=== PATIENT | female | born 2000 | race Caucasian/White ===

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

== ENCOUNTER 2018-11-03 09:53 | Emergency (ER) | payer MEDICARE, OTHER ==
[~2018-11-03] VITALS: Ht 167.6 cm; Wt 99.8 kg
[~2018-11-03 09:53] MED LIST: BIRTH CONTROL; DEXT30CA6 PO; OXYB5TAB7 PO
[2018-11-03] MEDS ORDERED: ONDANSETRON PF 4 MG/2 ML VIAL. IV ONE (10:15)
[2018-11-03] MEDS ORDERED: IV NORMAL SALINE 1000ML BAG 1,000 ML IV ONE (10:15)
[2018-11-03] MEDS ORDERED: fentaNYL PF VIAL 100 MCG/2 ML VIAL IV ONE ×2 (10:30→11:45)
[2018-11-03 10:36] LABS: BILIRUBIN,URINE NEGATIVE (NEG); CLARITY,URINE CLEAR; COLOR,URINE YELLOW; NITRITE,URINE NEGATIVE (NEG); PROTEIN,URINE NEGATIVE (NEG-TRACE); UROBILINOGEN,URINE 0.2 mg/dL (0.2 mg/dL)
[2018-11-03 10:39] LABS: BASO # 0.1 x10^3/uL (0.0-0.2); BASO % 1 % (0-3); EOS # 0.4 x10^3/uL (0.0-0.7); EOS % 3 % (0-3); HEMATOCRIT 41.6 % (36.0-47.0); HEMOGLOBIN 13.7 g/dL (12.0-15.5); LYMPH # 3.4 x10^3/uL (1.0-4.8); LYMPH % 31 % (24-48); MEAN CORPUSCULAR HEMOGLOBIN 30 pg (25-35); MEAN CORPUSCULAR HGB CONC 33 g/dL (31-37); MEAN CORPUSCULAR VOLUME 90 fL (79-100); MONO # 0.5 x10^3/uL (0.0-1.1); MONO % 5 % (0-9); NEUT # 6.6 x10^3uL (1.8-7.7); NEUT % 60 % (31-73); PLATELET COUNT 362 x10^3/uL (140-400); RED BLOOD COUNT 4.65 x10^6/uL (3.50-5.40); RED CELL DISTRIBUTION WIDTH 12.6 % (11.5-14.5); WHITE BLOOD COUNT 11.1 x10^3/uL (4.0-11.0)
[2018-11-03 10:45] LABS: RBC,URINE 0 /HPF (0-2); SQUAMOUS EPITHELIAL CELL,UR FEW /LPF
[2018-11-03 10:46] LABS: BACTERIA,URINE FEW /HPF (0-FEW)
[2018-11-03 10:49] LABS: CALCIUM 8.7 mg/dL (8.5-10.1); CREATININE 0.7 mg/dL (0.6-1.0); GFR 107.8; POTASSIUM 4.3 mmol/L (3.5-5.1)
--- NOTE | 2018-11-03 11:39 | RAD ---
Indication:LOWER ABD PAIN, HX OF OVARIAN TORSION TECHNIQUE: Grayscale, color Doppler and spectral waveform images of the pelvis obtained. COMPARISON:None FINDINGS: The uterus is anteverted and measures 7.3 x 2.4 x 4.5 cm (nodule, AP, transverse). Endometrial stripe measures 1 mm in thickness and is within normal limits. Few nabothian cysts are seen in the cervix. The right ovary measures 4.1 x 2.3 x 3.8 cm with multiple follicles and demonstrates evidence of blood flow. The left ovary measures 4.3 x 2.1 x 3.0 cm with multiple follicles and demonstrates evidence of blood flow. No free pelvic fluid. IMPRESSION: Bilateral ovaries demonstrate evidence of blood flow with multiple follicles. Electronically signed by: Siva Ames DO (11/03/2018 11:36 AM) [id number]
[2018-11-03] MEDS ORDERED: IOHEXOL 300 MG/ML 100ML VIAL. IV ONE (12:15)
[2018-11-03] MEDS ORDERED: CONTRAST GIVEN. MC PRN (12:15)
--- NOTE | 2018-11-03 12:45 | RAD ---
PQRS Compliance statement: One or more of the following individualized dose reduction techniques were utilized for this examination: 1. Automated exposure control. 2. Adjustment of the mA and/or kV according to patient size. 3. Use of iterative reconstruction technique. Indication:LLQ PAIN, [id number] 75ML, NO PRIORS TECHNIQUE: CT abdomen and pelvis with IV contrast with multiplanar reformats. COMPARISON: None FINDINGS: Heart is normal in size. No pericardial or pleural effusion. Clear lung bases. Liver, spleen, gallbladder, pancreas, adrenals and kidneys are within normal limits. No retroperitoneal or pelvic adenopathy. No free pelvic fluid or ascites. No bowel obstruction. Normal appendix. Uterus is present. Urinary bladder within normal limits. No pneumoperitoneum. No suspicious bony lesion. IMPRESSION: No acute findings. Electronically signed by: Siva Ames DO (11/03/2018 12:42 PM) [id number]
[2018-11-03 12:55] VITALS: BP 134/88
--- NOTE | 2018-11-03 13:00 | PHYS DOC ---
Past Medical History Past Medical History: Asthma, Other Additional Past Medical Histor: ovarian cysts, interstitial cystitis Past Surgical History: Other Additional Past Surgical Histo: ovarian torsion, foot surgery Alcohol Use: None Drug Use: None Adult General Chief Complaint Chief Complaint: ABDOMINAL PAIN HPI HPI Patient is a 17 year old female who presents to the ER with complaints of sudden onset of severe lower abdominal pain. She denies any vomiting, diarrhea, dysuria, hematuria, incontinence, back pain, fever, irregular vaginal discharge , or vaginal bleeding. Pt states she has a history of ovarian torsion and reports concern that it is happening again. She states the pain first started in her left lower abdomen but currently reports TTP in the RLQ. Pt describes the pain as a stabbing sensation and currently rates the pain a 6/10, she denies any alleviating or exacerbating factors. At this time she reports nausea. Review of Systems Review of Systems Constitutional: Denies fever or chills [] Eyes: Denies changes HENT: Denies nasal congestion or sore throat [] Respiratory: Denies cough or shortness of breath [] Cardiovascular: No additional information not addressed in HPI [] GI: See HPI : Denies dysuria or hematuria [] Musculoskeletal: Denies back pain Integument: Denies rash or skin lesions [] Neurologic: Denies headache, focal weakness or sensory changes [] Current Medications Current Medications Current Medications Medications (Trade) Dose Ordered Sig/Sami Start Time Stop Time Status Last Admin Dose Admin Fentanyl Citrate (Fentanyl 2ml Vial) 50 mcg 1X ONCE 11/03/18 11:45 11/03/18 11:46 DC 11/03/18 11:40 50 MCG Info (CONTRAST GIVEN -- Rx MONITORING) 1 each PRN DAILY PRN 11/03/18 12:15 11/03/18 13:24 DC Iohexol (Omnipaque 300 Mg/ml) 75 ml 1X ONCE 11/03/18 12:15 11/03/18 12:16 DC 11/03/18 12:23 75 ML Ondansetron HCl (Zofran) 4 mg 1X ONCE 11/03/18 10:15 11/03/18 10:17 DC 11/03/18 10:36 4 MG Sodium Chloride 1,000 ml @ 1,000 mls/hr 1X ONCE 11/03/18 10:15 11/03/18 11:14 DC 11/03/18 10:36 1,000 MLS/HR Allergies Allergies Allergies Coded Allergies Type Severity Reaction Last Updated Verified iodine Allergy Intermediate TOPICAL PRODUCTS ONLY 11/03/18 Yes Physical Exam Physical Exam Constitutional: Well developed, well nourished, moderate distress, non-toxic appearance. [] HENT: Normocephalic, atraumatic, bilateral external ears normal, oropharynx moist, nose normal. [] Eyes: conjunctiva normal, no discharge. [] Neck: Normal range of motion, no stridor. [] Cardiovascular:Heart rate regular rhythm, no murmur [] Lungs & Thorax: Bilateral breath sounds clear to auscultation [] Abdomen: Bowel sounds normal, soft, no masses, no pulsatile masses; RLQ TTP, no guarding or rebound tenderness, positive McBurney's point tenderness, negative Rovsing's sign[] Skin: Warm, dry, no erythema, no rash. [] Back: no CVA tenderness. [] Extremities: No cyanosis, ROM intact, no edema. [] Neurologic: Alert and oriented X 3, normal motor function, normal sensory function, no focal deficits noted. [] Psychologic: Affect normal, judgement normal, mood normal. [] Current Patient Data Vital Signs Vital Signs Date Time Temp Pulse Resp B/P (MAP) Pulse Ox O2 Delivery O2 Flow Rate FiO2 11/03/18 12:55 78 15 134/88 (103) 98 Room Air 11/03/18 10:05 98.4 98.4 Lab Values Laboratory Tests Test 11/03/18 10:00 11/03/18 10:12 11/03/18 10:29 Urine Collection Type Unknown Urine Color Yellow Urine Clarity Clear Urine pH 6.0 Urine Specific [place] 1.025 Urine Protein Negative mg/dL (NEG-TRACE) Urine Glucose (UA) Negative mg/dL (NEG) Urine Ketones (Stick) Negative mg/dL (NEG) Urine Blood Negative (NEG) Urine Nitrite Negative (NEG) Urine Bilirubin Negative (NEG) Urine Urobilinogen Dipstick 0.2 mg/dL (0.2 mg/dL) Urine Leukocyte Esterase Small (NEG) Urine RBC 0 /HPF (0-2) Urine WBC 1-4 /HPF (0-4) Urine Squamous Epithelial Cells Few /LPF Urine Bacteria Few /HPF (0-FEW) POC Urine HCG, Qualitative Hcg negative (Negative) White Blood Count 11.1 x10^3/uL (4.0-11.0) H Red Blood Count 4.65 x10^6/uL (3.50-5.40) Hemoglobin 13.7 g/dL (12.0-15.5) Hematocrit 41.6 % (36.0-47.0) Mean Corpuscular Volume 90 fL (79-100) Mean Corpuscular Hemoglobin 30 pg (25-35) Mean Corpuscular Hemoglobin Concent 33 g/dL (31-37) Red Cell Distribution Width 12.6 % (11.5-14.5) Platelet Count 362 x10^3/uL (140-400) Neutrophils (%) (Auto) 60 % (31-73) Lymphocytes (%) (Auto) 31 % (24-48) Monocytes (%) (Auto) 5 % (0-9) Eosinophils (%) (Auto) 3 % (0-3) Basophils (%) (Auto) 1 % (0-3) Neutrophils # (Auto) 6.6 x10^3uL (1.8-7.7) Lymphocytes # (Auto) 3.4 x10^3/uL (1.0-4.8) Monocytes # (Auto) 0.5 x10^3/uL (0.0-1.1) Eosinophils # (Auto) 0.4 x10^3/uL (0.0-0.7) Basophils # (Auto) 0.1 x10^3/uL (0.0-0.2) Sodium Level 141 mmol/L (136-145) Potassium Level 4.3 mmol/L (3.5-5.1) Chloride Level 104 mmol/L (98-107) Carbon Dioxide Level 27 mmol/L (21-32) Anion Gap 10 (6-14) Blood Urea Nitrogen 7 mg/dL (7-20) Creatinine 0.7 mg/dL (0.6-1.0) Estimated GFR (Cockcroft-Gault) 107.8 Glucose Level 84 mg/dL (70-99) Calcium Level 8.7 mg/dL (8.5-10.1) Laboratory Tests 11/03/18 10:29 Laboratory Tests 11/03/18 10:29 Microbiology 11/03/18 Urine Culture - Final, Complete 11/03/18 Urine Culture Result 1 (OLYA) - Final, Complete EKG EKG [] Radiology/Procedures Radiology/Procedures PROCEDURE: CT ABD PELV W/ IV CONTRST ONLY PQRS Compliance statement: One or more of the following individualized dose reduction techniques were utilized for this examination: 1. Automated exposure control. 2. Adjustment of the mA and/or kV according to patient size. 3. Use of iterative reconstruction technique. Indication:LLQ PAIN, [id number] 75ML, NO PRIORS TECHNIQUE: CT abdomen and pelvis with IV contrast with multiplanar reformats. COMPARISON: None FINDINGS: Heart is normal in size. No pericardial or pleural effusion. Clear lung bases. Liver, spleen, gallbladder, pancreas, adrenals and kidneys are within normal limits. No retroperitoneal or pelvic adenopathy. No free pelvic fluid or ascites. No bowel obstruction. Normal appendix. Uterus is present. Urinary bladder within normal limits. No pneumoperitoneum. No suspicious bony lesion. IMPRESSION: No acute findings. PROCEDURE: PELVIS W/TV Indication:LOWER ABD PAIN, HX OF OVARIAN TORSION TECHNIQUE: Grayscale, color Doppler and spectral waveform images of the pelvis obtained. COMPARISON:None FINDINGS: The uterus is anteverted and measures 7.3 x 2.4 x 4.5 cm (nodule, AP, transverse). Endometrial stripe measures 1 mm in thickness and is within normal limits. Few nabothian cysts are seen in the cervix. The right ovary measures 4.1 x 2.3 x 3.8 cm with multiple follicles and demonstrates evidence of blood flow. The left ovary measures 4.3 x 2.1 x 3.0 cm with multiple follicles and demonstrates evidence of blood flow. No free pelvic fluid. IMPRESSION: Bilateral ovaries demonstrate evidence of blood flow with multiple follicles. [] Course & Med Decision Making Course & Med Decision Making Pertinent Labs and Imaging studies reviewed. (See chart for details) dx lower abdominal pain CT and US were negative for acute appendicitis, ruptured ovarian cyst, or ovarian torsion. WBC 11.1, BMP and UA unremarkable. Pt encouraged to eat bland foods, tylenol or ibuprofen as needed for pain. Follow up with PCP if symptoms persist, return to ER if symptoms worsen. Patient verbalized an understanding of home care, medications, follow-up, and return to ED instructions and was in agreement with the plan of care. [] Dragon Disclaimer Dragon Disclaimer This electronic medical record was generated, in whole or in part, using a voice recognition dictation system. Departure Departure Impression: Primary Impression: Lower abdominal pain Disposition: HOME, SELF-CARE Condition: STABLE Referrals: EBENEZER LOWRY MD (PCP) Patient Instructions: Abdominal Pain (Nonspecific) Additional Instructions: Your CT and US were negative for acute appendicitis, ruptured ovarian cyst, or ovarian torsion. Recommend tylenol or ibuprofen as needed for pain, eat bland foods. Follow up with PCP if symptoms persist, return to the ER if symptoms worsen. LAURIE RISO ELECTRICAL ENGINEER MEP Nov 03, 2018 13:00
== END 2018-11-03 13:24 | disposition home or self-care (01) ==
LOC: ER 09:53
DX: R10.32 Left lower quadrant pain (principal); J45.909 Unspecified asthma, uncomplicated; Z88.8 Allergy status to other drugs, medicaments and biological substances
CPT/HCPCS: 36415; 74177; 76830; 76856; 80048; 81001; 81025; 85025; 87086; 96361; 96374; 96375; 96376; 99284; J2405; J3010; J7030; Q9967

== ENCOUNTER → 2019-03-21 | Outpatient (CLI) | payer OTHER ==
--- NOTE | 2019-03-21 16:56 | KCIC ---
INDICATION: Shortness of air and wheezing COMPARISON: None. FINDINGS: 2 view of chest obtained. No definite focal airspace consolidation or pulmonary edema. Cardiac silhouette is unremarkable. No gross osseous destructive lesion. IMPRESSION: 1. No definite focal airspace consolidation. Electronically signed by: Richard Martinez MD (03/21/2019 4:53 PM) [facility]
== END | disposition home or self-care (01) ==
LOC: KCIC 15:43
PROVIDERS: ATTEND Family Medicine
DX: J20.9 Acute bronchitis, unspecified (principal)
CPT/HCPCS: 71046

== ENCOUNTER 2019-06-23 16:15 | Emergency (ER) | payer OTHER ==
[~2019-06-23] VITALS: Ht 167.6 cm; Wt 102.5 kg
[~2019-06-23 16:15] MED LIST changes: +OXYB5TAB10 PO; -OXYB5TAB7 PO
[2019-06-23 16:30] VITALS: BP 148/86
[2019-06-23] MEDS ORDERED: IV NORMAL SALINE 1000ML BAG 1,000 ML IV ONE (17:00)
[2019-06-23] MEDS ORDERED: ONDANSETRON PF 4 MG/2 ML VIAL. IV ONE (17:00)
[2019-06-23] MEDS ORDERED: FAMOTIDINE 20 MG/2 ML VIAL IVP ONE (17:00)
[2019-06-23] MEDS ORDERED: MORPHINE SULFATE 10 MG/ML VIAL. IV ONE (17:00)
[2019-06-23 17:01] LABS: BILIRUBIN,URINE NEGATIVE (NEG); CLARITY,URINE CLEAR; COLOR,URINE YELLOW; NITRITE,URINE NEGATIVE (NEG); PH,URINE 5.5; PROTEIN,URINE NEGATIVE (NEG-TRACE); UROBILINOGEN,URINE 0.2 mg/dL (0.2 mg/dL)
[2019-06-23 17:05] LABS: BASO % 0 % (0-3); EOS # 0.3 x10^3/uL (0.0-0.7); EOS % 4 % (0-3); HEMATOCRIT 41.6 % (36.0-47.0); HEMOGLOBIN 14.1 g/dL (12.0-15.5); LYMPH % 26 % (24-48); MEAN CORPUSCULAR HEMOGLOBIN 30 pg (25-35); MEAN CORPUSCULAR HGB CONC 34 g/dL (31-37); MEAN CORPUSCULAR VOLUME 88 fL (79-100); MONO # 0.4 x10^3/uL (0.0-1.1); MONO % 5 % (0-9); NEUT # 5.2 x10^3/uL (1.8-7.7); NEUT % 66 % (31-73); PLATELET COUNT 410 x10^3/uL (140-400); RED BLOOD COUNT 4.71 x10^6/uL (3.50-5.40); RED CELL DISTRIBUTION WIDTH 12.6 % (11.5-14.5); WHITE BLOOD COUNT 7.9 x10^3/uL (4.0-11.0)
[2019-06-23 17:08] LABS: BACTERIA,URINE FEW /HPF (0-FEW); BARBITURATES NEG (NEG); BENZODIAZEPINES NEG (NEG); CANNABINOIDS NEG (NEG); COCAINE NEG (NEG); METHADONE NEG (NEG); OPIATES NEG (NEG); PHENCYCLIDINE NEG (NEG); SQUAMOUS EPITHELIAL CELL,UR FEW /LPF
[2019-06-23 17:09] LABS: AMPHETAMINE/METHAMPHETAMINE POS (NEG); RBC,URINE 0 /HPF (0-2); WBC,URINE 0 /HPF (0-4)
[2019-06-23 17:16] LABS: CALCIUM 9.1 mg/dL (8.5-10.1); CREATININE 1.1 mg/dL (0.6-1.0); GFR 63.3; POTASSIUM 4.8 mmol/L (3.5-5.1)
[2019-06-23 17:20] LABS: ALBUMIN 3.7 g/dL (3.4-5.0); ALBUMIN/GLOBULIN RATIO 1.2 (1.0-1.7); TOTAL BILIRUBIN 0.4 mg/dL (0.2-1.0); TOTAL PROTEIN 6.8 g/dL (6.4-8.2)
[2019-06-23] MEDS ORDERED: IOHEXOL 300 MG/ML 100ML VIAL. IV ONE (17:30)
--- NOTE | 2019-06-23 17:59 | RAD ---
Exam: CT abdomen and pelvis with contrast INDICATION: Abdominal pain TECHNIQUE: Sequential axial images through the abdomen and pelvis obtained following the administration of 75 mL of Omni 300 IV contrast. Sagittal and coronal reformatted images were reconstructed from the axial data and reviewed. Comparisons: None FINDINGS: Heart size is normal. No pericardial effusion. Visualized lung bases are clear. No pleural effusion. Liver, spleen, pancreas, gallbladder and adrenals are unremarkable. Kidneys demonstrate symmetric enhancement. No perinephric inflammation or hydronephrosis. No renal or ureteral calculi are identified. Bladder is distended and appears thin-walled. Uterus is not enlarged. No abnormal adnexal mass. Large and small bowel are unremarkable. Appendix is normal. No free intra-abdominal air or fluid. No obstruction. Abdominal aorta has a normal course and caliber. Abdominal vasculature is patent. No enlarged intra-abdominal lymph nodes are identified. No suspicious osseous lesions or acute fractures. IMPRESSION: No acute process identified within the abdomen or pelvis. Exposure: One or more of the following in the visualized dose reduction techniques were utilized for this examination: 1. Automated exposure control 2. Adjustment of the MA and/or KV according to patient size 3. Use of iterative of reconstructive technique Electronically signed by: Jayme Yoder MD (06/23/2019 5:56 PM) [facility]
--- NOTE | 2019-06-23 18:15 | PHYS DOC ---
Past Medical History Past Medical History: Anxiety, Asthma, Depression, Other Additional Past Medical Histor: ovarian cysts, interstitial cystitis, H PYLORI, ADHD, HEMORRHOIDS (ISAIAS WOLFF APRN) Past Surgical History: Other Additional Past Surgical Histo: ovarian torsion, foot surgery (ISAIAS WOLFF APRN) Alcohol Use: None Drug Use: None (ISAIAS WOLFF APRN) Adult General Chief Complaint Chief Complaint: ABDOMINAL PAIN [facility] HPI Patient is a 18 year old female with history of anxiety, asthma, depression, who presents to the ED today complaining of a sharp 6 out of 10 abdominal pain with nausea and vomiting that she states began a couple weeks ago that has been going on for weeks. Patient states the pain began on the left upper quadrant as well as flank region, she states she was seen at [facility] on June 15, 2019, she states they did a full workup including a CAT scan of the abdomen and pelvis which was negative for any acute findings but states she wants another CT of the abdomen because she feels this pain is different. She states she was instructed to follow-up with a GI doctor. She reports she has an appointment with Dr. Kauffman the GI doctor on July 11, 2019 but she cannot wait until then. She states she cannot continue to have this abdominal pain with nausea vomiting like this. 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 She also reports she has been informed by her own PCP she has had H. pylori. She states she was treated with 2 rounds of antibiotics and referred back to GI. Patient denies any diarrhea. She states when she was seen at [facility] she was given several medications including several doses of morphine and tramadol before her pain got under control. (ISAIAS WOLFF APRN) Review of Systems Review of Systems Constitutional: Denies fever or chills [] Eyes: Denies change in visual acuity, redness, or eye pain [] HENT: Denies nasal congestion or sore throat [] Respiratory: Denies cough or shortness of breath [] Cardiovascular: No additional information not addressed in HPI [] GI: Reports abdominal pain with nausea and vomiting, denies bloody stools or diarrhea [] : Denies dysuria or hematuria [] Musculoskeletal: Denies back pain or joint pain [] Integument: Denies rash or skin lesions [] Neurologic: Denies headache, focal weakness or sensory changes [] All other systems were reviewed and found to be within normal limits, except as documented in this note. (ISAIAS WOLFF APRN) Current Medications Current Medications Current Medications Medications (Trade) Dose Ordered Sig/Sami Start Time Stop Time Status Last Admin Dose Admin Famotidine (Pepcid Vial) 20 mg 1X ONCE 06/23/19 17:00 06/23/19 17:01 DC 06/23/19 17:03 20 MG Iohexol (Omnipaque 300 Mg/ml) 75 ml 1X ONCE 06/23/19 17:30 06/23/19 17:31 DC 06/23/19 17:40 75 ML Metoclopramide HCl (Reglan Vial) 10 mg 1X ONCE 06/23/19 19:15 06/23/19 19:19 DC 06/23/19 19:25 10 MG Morphine Sulfate (Morphine Sulfate) 5 mg 1X ONCE 06/23/19 17:00 06/23/19 17:01 DC 06/23/19 17:05 5 MG Ondansetron HCl (Zofran) 4 mg 1X ONCE 06/23/19 17:00 06/23/19 17:01 DC 06/23/19 17:01 4 MG Sodium Chloride 1,000 ml @ 1,000 mls/hr 1X ONCE 06/23/19 17:00 06/23/19 17:59 DC 06/23/19 17:00 1,000 MLS/HR Tramadol HCl (Ultram) 100 mg 1X ONCE 06/23/19 19:15 06/23/19 19:19 DC 06/23/19 19:26 100 MG (LORENZO DONALD DO) Allergies Allergies Allergies Coded Allergies Type Severity Reaction Last Updated Verified fentanyl Allergy Intermediate FACE ITCHING 06/23/19 Yes iodine Allergy Intermediate TOPICAL PRODUCTS ONLY 11/03/18 Yes (LORENZO DONALD DO) Physical Exam Physical Exam Constitutional: Well developed, well nourished, no acute distress, non-toxic appearance. [] HENT: Normocephalic, atraumatic, bilateral external ears normal, oropharynx moist, no oral exudates, nose normal. [] Eyes: PERRLA, EOMI, conjunctiva normal, no discharge. [] Neck: Normal range of motion, no tenderness, supple, no stridor. [] Cardiovascular:Heart rate regular rhythm, no murmur [] Lungs & Thorax: Bilateral breath sounds clear to auscultation [] Abdomen: Bowel sounds normal, soft, diffuse tenderness, no obvious point tenderness to the right upper quadrant or right lower quadrant, no masses, no pulsatile masses. [] Skin: Warm, dry, no erythema, no rash. [] Back: No tenderness, no CVA tenderness. [] Extremities: No tenderness, no cyanosis, no clubbing, ROM intact, no edema. [] Neurologic: Alert and oriented X 3, normal motor function, normal sensory function, no focal deficits noted. [] Psychologic: flat affected (MUTUNGA,ISAIAS CLERK MANAGER) Current Patient Data Vital Signs Vital Signs Date Time Temp Pulse Resp B/P (MAP) Pulse Ox O2 Delivery O2 Flow Rate FiO2 06/23/19 20:26 14 98 Room Air 06/23/19 16:30 98.8 98 148/86 (106) 98.8 (DONALD,LORENZO R DO) Lab Values Laboratory Tests Test 06/23/19 16:24 06/23/19 16:28 06/23/19 16:50 Urine Collection Type Unknown Urine Color Yellow Urine Clarity Clear Urine pH 5.5 Urine Specific [place] 1.025 Urine Protein Negative mg/dL (NEG-TRACE) Urine Glucose (UA) Negative mg/dL (NEG) Urine Ketones (Stick) Trace mg/dL (NEG) Urine Blood Negative (NEG) Urine Nitrite Negative (NEG) Urine Bilirubin Negative (NEG) Urine Urobilinogen Dipstick 0.2 mg/dL (0.2 mg/dL) Urine Leukocyte Esterase Negative (NEG) Urine RBC 0 /HPF (0-2) Urine WBC 0 /HPF (0-4) Urine Squamous Epithelial Cells Few /LPF Urine Bacteria Few /HPF (0-FEW) Urine Mucus Marked /LPF Urine Opiates Screen Neg (NEG) Urine Methadone Screen Neg (NEG) Urine Barbiturates Neg (NEG) Urine Phencyclidine Screen Neg (NEG) Urine Amphetamine/Methamphetamine Pos (NEG) Urine Benzodiazepines Screen Neg (NEG) Urine Cocaine Screen Neg (NEG) Urine Cannabinoids Screen Neg (NEG) Urine Ethyl Alcohol Neg (NEG) POC Urine HCG, Qualitative Hcg negative (Negative) White Blood Count 7.9 x10^3/uL (4.0-11.0) Red Blood Count 4.71 x10^6/uL (3.50-5.40) Hemoglobin 14.1 g/dL (12.0-15.5) Hematocrit 41.6 % (36.0-47.0) Mean Corpuscular Volume 88 fL (79-100) Mean Corpuscular Hemoglobin 30 pg (25-35) Mean Corpuscular Hemoglobin Concent 34 g/dL (31-37) Red Cell Distribution Width 12.6 % (11.5-14.5) Platelet Count 410 x10^3/uL (140-400) H Neutrophils (%) (Auto) 66 % (31-73) Lymphocytes (%) (Auto) 26 % (24-48) Monocytes (%) (Auto) 5 % (0-9) Eosinophils (%) (Auto) 4 % (0-3) H Basophils (%) (Auto) 0 % (0-3) Neutrophils # (Auto) 5.2 x10^3/uL (1.8-7.7) Lymphocytes # (Auto) 2.0 x10^3/uL (1.0-4.8) Monocytes # (Auto) 0.4 x10^3/uL (0.0-1.1) Eosinophils # (Auto) 0.3 x10^3/uL (0.0-0.7) Basophils # (Auto) 0.0 x10^3/uL (0.0-0.2) Sodium Level 144 mmol/L (136-145) Potassium Level 4.8 mmol/L (3.5-5.1) Chloride Level 105 mmol/L (98-107) Carbon Dioxide Level 29 mmol/L (21-32) Anion Gap 10 (6-14) Blood Urea Nitrogen 8 mg/dL (7-20) Creatinine 1.1 mg/dL (0.6-1.0) H Estimated GFR (Cockcroft-Gault) 63.3 BUN/Creatinine Ratio 7 (6-20) Glucose Level 116 mg/dL (70-99) H Calcium Level 9.1 mg/dL (8.5-10.1) Total Bilirubin 0.4 mg/dL (0.2-1.0) Aspartate Amino Transferase (AST) 12 U/L (15-37) L Alanine Aminotransferase (ALT) 24 U/L (14-59) Alkaline Phosphatase 79 U/L (46-116) Total Protein 6.8 g/dL (6.4-8.2) Albumin 3.7 g/dL (3.4-5.0) Albumin/Globulin Ratio 1.2 (1.0-1.7) Lipase 89 U/L (73-393) Ethyl Alcohol Level < 10 mg/dL (0-10) Laboratory Tests 06/23/19 16:50 Laboratory Tests 06/23/19 16:50 (LORENZO DONALD DO) EKG EKG [] (ISAIAS WOLFF APRN) Radiology/Procedures Radiology/Procedures []PROCEDURE: CT ABD PELV W/ IV CONTRST ONLY Exam: CT abdomen and pelvis with contrast INDICATION: Abdominal pain TECHNIQUE: Sequential axial images through the abdomen and pelvis obtained following the administration of 75 mL of Omni 300 IV contrast. Sagittal and coronal reformatted images were reconstructed from the axial data and reviewed. Comparisons: None FINDINGS: Heart size is normal. No pericardial effusion. Visualized lung bases are clear. No pleural effusion. Liver, spleen, pancreas, gallbladder and adrenals are unremarkable. Kidneys demonstrate symmetric enhancement. No perinephric inflammation or hydronephrosis. No renal or ureteral calculi are identified. Bladder is distended and appears thin-walled. Uterus is not enlarged. No abnormal adnexal mass. Large and small bowel are unremarkable. Appendix is normal. No free intra-abdominal air or fluid. No obstruction. Abdominal aorta has a normal course and caliber. Abdominal vasculature is patent. No enlarged intra-abdominal lymph nodes are identified. No suspicious osseous lesions or acute fractures. IMPRESSION: No acute process identified within the abdomen or pelvis. Exposure: One or more of the following in the visualized dose reduction techniques were utilized for this examination: 1. Automated exposure control 2. Adjustment of the MA and/or KV according to patient size 3. Use of iterative of reconstructive technique Electronically signed by: Jayme Wong MD (06/23/2019 5:56 PM) [facility] DICTATED and SIGNED BY: JAYME WONG MD DATE: 06/23/19 175 (ISAIAS WOLFF APRN) Course & Med Decision Making Course & Med Decision Making Pertinent Labs and Imaging studies reviewed. (See chart for details) This is a 18-year-old male patient presenting to the ED today complaining of abdominal pain with nausea and vomiting, see history of present illness, patient has had several workups for her symptoms with no acute findings. CBC, CMP, urine analysis-negative for any acute findings CT of the abdomen and pelvic is negative for any acute findings Patient requested ultrasound of the right upper quadrant to make sure she doesn't have gallstones. Limited right upper quadrant ultrasound is negative. Patient's family members started asking if patient can be sent home with pain medicine. I talked to them at length. Informed them there is a drug problem in the country and we would like to help the government fight drug addiction hence if there is no indication for narcotics we do not send patients home with any narcotics. Recommended [id number] indications including famotidine. Discharged with Reglan for her nausea vomiting. She states she has Zofran which is not working. (ISAIAS WOLFF APRN) Dragon Disclaimer Dragon Disclaimer This electronic medical record was generated, in whole or in part, using a voice recognition dictation system. (ISAIAS WOLFF APRN) Departure Departure Impression: Primary Impression: Generalized abdominal pain Additional Impression: Nausea and vomiting Disposition: HOME, SELF-CARE Condition: STABLE Referrals: EBENEZER LOWRY MD (PCP) DEMAR KAUFFMAN MD follow up as soon as you can Patient Instructions: Abdominal Pain (Nonspecific) Additional Instructions: You were evaluated in the emergency room for abdominal pain, your emergency room workup including CAT scan of the abdomen and pelvic, ultrasound, and lab work were negative for any acute findings. Please continue following up with your primary care doctor as well as a GI specialist. Scripts Metoclopramide Hcl (REGLAN) 10 Mg Tablet 1 TAB PO TID PRN for NAUSEA for 30 Days, #90 TAB 0 Refills Prov: ISAIAS WOLFF APRN 06/23/19 Attending Signature Attending Signature I have reviewed the PA/SHADE MATCHER's note and plan of care. I was available for consultation as needed during the patient's visit in the emergency department. I agree with the clinical impression, plan, and disposition. (LORENZO DONALD DO) Problem Qualifiers Additional Impression: Nausea and vomiting Vomiting type: unspecified Vomiting Intractability: unspecified Qualified Codes: R11.2 - Nausea with vomiting, unspecified ISAIAS WOLFF APRN Jun 23, 2019 18:15 LORENZO DONALD DO Jun 24, 2019 05:36
[2019-06-23] MEDS ORDERED: traMADol 50 MG TABLET PO ONE (19:15)
[2019-06-23] MEDS ORDERED: METOCLOPRAMIDE HCL 10 MG/2 ML VIAL. IVP ONE (19:15)
--- NOTE | 2019-06-23 20:47 | RAD ---
Ultrasound of the right upper quadrant of the abdomen 06/23/2019 CLINICAL HISTORY: Right upper quadrant abdominal pain. TECHNIQUE: A real-time ultrasound examination of the right upper quadrant abdomen was performed. Multiple images were obtained. FINDINGS: Comparison is made to the patient's CT scan of the abdomen performed earlier today. The gallbladder is slightly contracted. No gallstones are visualized. The gallbladder wall thickness is within normal limits. No pericholecystic fluid is seen. The liver is normal in size measuring 15.7 cm in length. No focal abnormality of the liver is seen. The visualized portions of pancreas and right kidney are within normal limits. No free fluid is seen. IMPRESSION: Negative study. Electronically signed by: Johny Orellana MD (06/23/2019 8:44 PM) [facility]
[2019-06-23] MEDS ORDERED: METO10TA81 PO (21:01)
== END 2019-06-23 21:13 | disposition home or self-care (01) ==
LOC: ER 16:15
DX: R10.84 Generalized abdominal pain (principal); R11.2 Nausea with vomiting, unspecified; F41.9 Anxiety disorder, unspecified; F32.9 Major depressive disorder, single episode, unspecified; J45.909 Unspecified asthma, uncomplicated; Z88.6 Allergy status to analgesic agent; Z91.041 Radiographic dye allergy status
CPT/HCPCS: 36415; 74177; 76705; 80053; 80307; 81001; 81025; 83690; 85025; 96361; 96374; 96375; 99285; G0480; J2270; J2405; J2765; J3490; J7030; Q9967